=== PATIENT | female | born 1995 | race Two or more races ===

== ENCOUNTER 2018-11-06 08:29 | Outpatient (CLI) | payer OTHER | END 2018-11-06 08:34 | disposition home or self-care (01) | LOC: SONOGRAMA 08:29 | DX: E05.20 Thyrotoxicosis with toxic multinodular goiter without thyrotoxic crisis or storm (principal) ==

== ENCOUNTER 2021-01-08 08:31 | Outpatient (CLI) | payer OTHER | END 2021-01-08 08:47 | disposition home or self-care (01) | LOC: SONOGRAMA 08:31 | PROVIDERS: ATTEND Pathology Anatomic Pathology & Clinical Pathology | DX: E04.1 Nontoxic single thyroid nodule (principal) ==